=== PATIENT | male | born 1960 | race Caucasian/White ===

== ENCOUNTER 2017-03-09 22:18 | Emergency (ER) | payer OTHER ==
[~2017-03-09] VITALS: Ht 182.9 cm; Wt 102.0 kg
[2017-03-09 22:19] VITALS: BP 150/87; PULSE 80; RESP 16; TEMP 98.6; O2SAT 97
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
== END 2017-03-09 23:25 | disposition home or self-care (01) ==
LOC: NEPD 22:18
DX: Z04.1 Encounter for examination and observation following transport accident (principal); V53.5XXA Driver of pick-up truck or van injured in collision with car, pick-up truck or van in traffic accident, initial encounter; Y92.410 Unspecified street and highway as the place of occurrence of the external cause; Y99.0 Civilian activity done for income or pay
CPT/HCPCS: 99283